=== PATIENT | female | born 1990 | race Caucasian/White ===

== ENCOUNTER 2021-09-18 17:25 | Inpatient (IN) | payer BC, OTHER ==
[~2021-09-18] VITALS: Ht 157.5 cm; Wt 78.0 kg
[~2021-09-18 17:25] MED LIST: AMOX50SU PO; IBUP800 PO; RXTRAM50 PO; TRAM50 PO
[2021-09-18 18:28] LABS: BASOPHILS ABSOLUTE AUTO 0.03 K/mm3 (0.00-0.23); BASOPHILS PERCENT AUTO 0 % (0-2); EOSINOPHILS ABSOLUTE AUTO 0.16 K/mm3 (0.00-0.68); EOSINOPHILS PERCENT AUTO 2 % (0-6); Hematocrit 33.8 % (33.0-51.0); Hemoglobin 11.4 g/dL (11.5-16.0); IMMATURE GRAN ABSOLUTE AUTO 0.08 K/mm3 (0.00-0.10); IMMATURE GRAN PERCENT AUTO 1 % (0-1); LYMPHOCYTES ABSOLUTE AUTO 1.57 K/mm3 (0.84-5.20); LYMPHOCYTES PERCENT AUTO 14 % (21-46); MONOCYTES PERCENT AUTO 8 % (4-13); Mean Corpuscular HGB 30.6 pg (26.0-34.0); Mean Corpuscular HGB Conc 33.7 g/dL (31.5-36.5); Mean Corpuscular Volume 91 fL (80-100); Mean Platelet Volume 12.1 fL (9.1-12.4); NEUTROPHILS ABSOLUTE AUTO 8.19 K/mm3 (1.96-9.15); NEUTROPHILS PERCENT AUTO 75 % (41-73); Platelet Count 137 K/mm3 (150-400); RDW Coefficient Variation 14.4 % (11.7-14.2); RDW Standard Deviation 47.7 fL (35.1-46.3); Red Blood Cell Count 3.73 M/mm3 (3.80-5.20); White Blood Cell Count 10.93 K/mm3 (4.00-11.30)
[2021-09-18] MEDS ORDERED: ASPIR 8181 M1 (18:30)
[2021-09-18] MEDS ORDERED: IRON18 MG (18:30)
[2021-09-18 19:52] LABS: Influenza A, PCR NEGATIVE (NEGATIVE); Influenza B, PCR NEGATIVE (NEGATIVE); Resp Syncytial Virus, PCR NEGATIVE (NEGATIVE); SARS-Cov-2 (COVID-19) PCR, MMC NEGATIVE (NEGATIVE)
[2021-09-20 05:48] LABS: Hemoglobin 9.2 g/dL (11.5-16.0); Mean Corpuscular HGB 31.2 pg (26.0-34.0); Mean Corpuscular HGB Conc 34.1 g/dL (31.5-36.5); Mean Corpuscular Volume 92 fL (80-100); Mean Platelet Volume 12.1 fL (9.1-12.4); Platelet Count 118 K/mm3 (150-400); RDW Coefficient Variation 14.4 % (11.7-14.2); RDW Standard Deviation 48.1 fL (35.1-46.3); Red Blood Cell Count 2.95 M/mm3 (3.80-5.20); White Blood Cell Count 23.17 K/mm3 (4.00-11.30)
--- NOTE | 2021-09-20 09:10 | NUR ---
PERINIUM GROSSLY SWOLLEN ICE PAD APPLIED INSTRUCTED PT TO SIT SIDE TO SIDE AND NOT DIRECTLY ON HER [facility] WILL CALL STAFF WHEN SHE NEEDS ANOTHER ICE PAD
--- NOTE | 2021-09-20 16:25 | NUR ---
REPT TO Deon KUMAR RN
--- NOTE | 2021-09-20 18:30 | NUR ---
1630 ASSUMED CARE OF PATIENT AND BABY. PATIENT COMFORTABLE, OOB IN ROOM DOING WELL
--- NOTE | 2021-09-20 18:31 | NUR ---
1830 OOB TO BATHROOM, ICE PACK TO [facility]
[2021-09-21] MEDS ORDERED: IBUP800 PO (14:54)
[2021-09-21] MEDS ORDERED: ACET500 PO (14:54)
[2021-09-21] MEDS ORDERED: DOCU100 PO (14:55)
[2021-09-21] MEDS ORDERED: PRENATAL TABLE1 EAC2 PO (14:55)
--- NOTE | 2021-09-21 16:36 | NUR ---
DISCHARGE TEACHING COMPLETED QUESTIONS ANSWERED. WILL RETURN TOMORROW FOR PP F/U APPT AND NB TCB CHECK
--- NOTE | 2021-09-21 17:09 | NUR ---
DISCHARGE TO HOME WITH NB
== END 2021-09-21 17:07 | disposition home or self-care (01) | DRG 806 ==
LOC: BC 17:25 → OBS 17:25 → BC 18:09
PROVIDERS: Advanced Practice Midwife; ADMIT Obstetrics & Gynecology
PROC: 10D07Z6 Extraction of Products of Conception, Vacuum, Via Natural or Artificial Opening (ICD-10-PCS; principal; 2021-09-19)
PROC: 0UQMXZZ Repair Vulva, External Approach (ICD-10-PCS; 2021-09-19)
PROC: 10H07YZ Insertion of Other Device into Products of Conception, Via Natural or Artificial Opening (ICD-10-PCS; 2021-09-19)
PROC: 3E0R3BZ Introduction of Anesthetic Agent into Spinal Canal, Percutaneous Approach (ICD-10-PCS; 2021-09-19)
PROC: 00HU33Z Insertion of Infusion Device into Spinal Canal, Percutaneous Approach (ICD-10-PCS; 2021-09-19)
DX: O42.02 Full-term premature rupture of membranes, onset of labor within 24 hours of rupture (principal); D62 Acute posthemorrhagic anemia; Z37.0 Single live birth; O72.0 Third-stage hemorrhage; Z3A.40 40 weeks gestation of pregnancy; Z20.822 Contact with and (suspected) exposure to COVID-19; O70.0 First degree perineal laceration during delivery; O99.02 Anemia complicating childbirth; D64.9 Anemia, unspecified; O99.344 Other mental disorders complicating childbirth; F41.8 Other specified anxiety disorders; O69.81X0 Labor and delivery complicated by cord around neck, without compression, not applicable or unspecified; Z87.891 Personal history of nicotine dependence; Z88.5 Allergy status to narcotic agent; Z88.8 Allergy status to other drugs, medicaments and biological substances; Z79.899 Other long term (current) drug therapy; Z79.82 Long term (current) use of aspirin
CPT/HCPCS: 0241U; 36415; 51702; 59025; 85025; 85027; 86850; 86900; 86901; A9270; J1885; J2001; J2210; J2590; J3010; J7120

== ENCOUNTER → 2021-10-01 | Outpatient (CLI) | payer BC, OTHER ==
[~2021-10-01] MED LIST changes: +ACET500 PO; +ASPIR 8181 M1; +DOCU100 PO; +IRON18 MG; +PRENATAL TABLE1 EAC2 PO
[2021-10-01 17:33] LABS: Source, Urine Clean Catch
[2021-10-01 19:18] LABS: Appearance, Urine Hazy (Clear); Bilirubin, Urine Neg (Neg); Blood, Urine 5+ (Neg); Glucose Qualitative, Urine Neg (Neg); Ketones, Urine Neg (Neg); Leukocyte Esterase, Urine 3+ (Neg); Nitrite, Urine Neg (Neg); Protein, Urine Neg (Neg); Urobilinogen, Urine NORM (Normal)
[2021-10-01 19:51] LABS: Color, Urine Yellow (P-Yellow)
[2021-10-01 19:52] LABS: Amorphous Light (0-Heavy); Bacteria Mod /hpf; Mucus Light (0-Heavy); Squamous Epithelial Cells Rare /hpf (Few); White Blood Cells, Urine 50-100 /hpf (0-5)
== END | disposition home or self-care (01) ==
LOC: LAB SHORT 17:30
PROVIDERS: Obstetrics & Gynecology
DX: R30.9 Painful micturition, unspecified (principal)
CPT/HCPCS: 81001

== ENCOUNTER → 2023-08-23 | Outpatient (CLI) | payer BC, OTHER ==
[2023-08-27 20:48] LABS: HPV HIGH RISK BY TMA Not Detected; HPV SOURCE Cervical
== END ==
LOC: LAB 12:04 → LAB SHORT 12:04
PROVIDERS: Advanced Practice Midwife
DX: Z01.419 Encounter for gynecological examination (general) (routine) without abnormal findings (principal)
CPT/HCPCS: 87624; G0123

== ENCOUNTER → 2024-08-17 | Outpatient (CLI) | payer BC, OTHER ==
[2024-08-17 17:34] LABS: Source, Urine Clean Catch
[2024-08-17 19:23] LABS: Amorphous Heavy (0-Heavy); Calcium Oxalate Crystals Many /hpf; Red Blood Cells, Urine 0-2 /hpf (0-2); Squamous Epithelial Cells Rare /hpf (Few); White Blood Cells, Urine 0-2 /hpf (0-5)
[2024-08-17 19:26] LABS: Bacteria Few /hpf
== END ==
LOC: LAB 17:30 → LAB SHORT 17:30
PROVIDERS: Obstetrics & Gynecology
DX: Z34.81 Encounter for supervision of other normal pregnancy, first trimester (principal)
CPT/HCPCS: 81015; 87086

== ENCOUNTER → 2025-02-12 | Outpatient (CLI) | payer BC, OTHER | LOC: LAB SHORT 15:25 → LAB 15:25 | DX: O09.93 Supervision of high risk pregnancy, unspecified, third trimester (principal) | CPT/HCPCS: 87081; 87150 ==

== ENCOUNTER 2025-03-11 20:58 | Inpatient (IN) | payer BC, OTHER ==
[~2025-03-11] VITALS: Ht 157.5 cm; Wt 77.7 kg
[2025-03-11 21:15] VITALS: BP 121/69
[2025-03-11] MEDS ORDERED: FentaNYL 2mcg/ml-Bup 0.1% Epd 250 ML EPI PRN (21:35)
[2025-03-11] MEDS ORDERED: Ondansetron HCl 2 MG / ML 2ML Vial IV PRN (21:35)
[2025-03-11] MEDS ORDERED: OXYTOCIN/RINGER'S LACTATE 500 ML IV PRN (21:35)
[2025-03-11] MEDS ORDERED: Tranexamic Acid 100 ML IV SCH (21:35)
[2025-03-11] MEDS ORDERED: Oxytocin 10 Unit / ML Vial IM PRN (21:35)
[2025-03-11] MEDS ORDERED: FentaNYL Citrate 50 MCG/ML 2 ML Injection IV PRN (21:35)
[2025-03-11] MEDS ORDERED: Methylergonovine Maleate 0.2MG / ML 1ML Amp IM PRN (21:35)
[2025-03-11] MEDS ORDERED: ePHEDrine Sulfate 50 MG/ML 1ML Injection XX PRN (21:35)
[2025-03-11] MEDS ORDERED: Carboprost Tromethamine 250 MCG/ML 1ML Amp IM PRN (21:35)
[2025-03-11 22:05] LABS: BASOPHILS ABSOLUTE AUTO 0.03 K/mm3 (0.00-0.23); BASOPHILS PERCENT AUTO 0 % (0-2); EOSINOPHILS ABSOLUTE AUTO 0.06 K/mm3 (0.00-0.68); EOSINOPHILS PERCENT AUTO 1 % (0-6); Hematocrit 35.6 % (33.0-51.0); Hemoglobin 12.4 g/dL (11.5-16.0); IMMATURE GRAN ABSOLUTE AUTO 0.10 K/mm3 (0.00-0.10); IMMATURE GRAN PERCENT AUTO 1 % (0-1); LYMPHOCYTES ABSOLUTE AUTO 1.50 K/mm3 (0.84-5.20); LYMPHOCYTES PERCENT AUTO 17 % (21-46); MONOCYTES ABSOLUTE AUTO 0.73 K/mm3 (0.16-1.47); MONOCYTES PERCENT AUTO 8 % (4-13); Mean Corpuscular HGB Conc 34.8 g/dL (31.5-36.5); Mean Corpuscular Volume 91 fL (80-100); NEUTROPHILS ABSOLUTE AUTO 6.32 K/mm3 (1.96-9.15); NEUTROPHILS PERCENT AUTO 72 % (41-73); NRBC ABSOLUTE 0.00 K/mm3 (0.00-0.02); NRBC Auto 0.0 /100 WBC (0.0-0.2); Platelet Count 158 K/mm3 (150-400); RDW Coefficient Variation 13.3 % (11.7-14.2); RDW Standard Deviation 43.7 fL (35.1-46.3)
[2025-03-12] VITALS (34 sets, daily range): BP systolic 69–141; BP diastolic 42–83
[2025-03-12] MEDS ORDERED: Phenylephrine HCl 100 MCG/ML-NS 10MLSYR (1MG/10ML) ONE (01:56)
[2025-03-12] MEDS ORDERED: ePHEDrine Sulfate 50 MG/ML 1ML Injection IV PRN (02:05)
[2025-03-12] MEDS ORDERED: Ondansetron HCl 2 MG / ML 2ML Vial IV PRN (02:05)
[2025-03-12] MEDS ORDERED: Benzocaine Topical Anesthetic Spray 60GM TOP PRN (05:40)
[2025-03-12] MEDS ORDERED: Witch Hazel/Glycerin PADS TOP PRN (05:40)
[2025-03-12] MEDS ORDERED: Ketorolac Tromethamine 30mg Vial IV PRN (05:45)
[2025-03-12] MEDS ORDERED: FLU VACC TS2025-26(6MOS UP)/PF 45 MCG/0.5 ML SYRINGE IM SCH (05:45)
--- NOTE | 2025-03-12 08:43 | NUR ---
Upon receiving a referral for spiritual care, I visited the patient. The baby's parents and grandmother are present. They welcome spiritual care and a blessing being said for the baby, which I gladly supply. The family respond well and showed signs of being encouraged by the prayer. Pastoral care will remain available.
[2025-03-12] MEDS ORDERED: Prenatal Vit/FE Fumarate/FA 1 Tab PO SCH (09:00)
[2025-03-13 05:05] VITALS: BP 95/50
[2025-03-13 08:13] VITALS: BP 108/64
[2025-03-13 10:52] VITALS: BP 121/69
--- NOTE | 2025-03-13 11:43 | NUR ---
Assumed care at change of shift, patient anticipating early discharge. Reports pain simialr to labor pains, requests APAP and IBU for pain, provider offered to send something stronger to pharmacy for discharge however patient declined. Discharge teaching completed, bands matched, patient is feeding prior to leaving hospital, instructed to call nurse when done feeding.
--- NOTE | 2025-03-13 12:05 | NUR ---
Discharged to home.
== END 2025-03-13 12:00 | disposition home or self-care (01) | DRG 807 ==
LOC: OBS 20:58 → BC 21:00 → OBS 21:32 → BC 21:34
PROVIDERS: ADMIT Family Medicine
PROC: 10E0XZZ Delivery of Products of Conception, External Approach (ICD-10-PCS; principal; 2025-03-12)
PROC: 3E0R3BZ Introduction of Anesthetic Agent into Spinal Canal, Percutaneous Approach (ICD-10-PCS; 2025-03-12)
PROC: 00HU33Z Insertion of Infusion Device into Spinal Canal, Percutaneous Approach (ICD-10-PCS; 2025-03-12)
DX: O99.344 Other mental disorders complicating childbirth (principal); Z37.0 Single live birth; F41.9 Anxiety disorder, unspecified; Z3A.40 40 weeks gestation of pregnancy; F32.A Depression, unspecified; O69.81X0 Labor and delivery complicated by cord around neck, without compression, not applicable or unspecified; O48.0 Post-term pregnancy; Z87.39 Personal history of other diseases of the musculoskeletal system and connective tissue; Z98.890 Other specified postprocedural states; Z87.891 Personal history of nicotine dependence; Z88.8 Allergy status to other drugs, medicaments and biological substances; Z88.5 Allergy status to narcotic agent; Z79.899 Other long term (current) drug therapy
CPT/HCPCS: 51701; 59414; 85025; 86850; 86900; 86901; 99213; A9270; J1885; J2371; J2405; J7120